=== PATIENT | male | born 1960 | race African-American/Black ===

== ENCOUNTER 2020-02-10 10:34 | Inpatient (IN) | payer OTHER ==
--- NOTE | 2020-02-10 15:48 | BHS.RME ---
Substance Use & Tx History - Substance Use History Heroin Substance amount: 7 bags Frequency of use: Daily Substance route: Inhalation (ex: sniffing or snorting) Date of Last Use: 02/10/20 Cocaine-Crack Substance amount: 70$ Frequency of use: Daily Substance route: Smoking Date of Last Use: 02/09/20 - Last Treatment Date of last treatment: 2018 Where was last treatment: Detox Physical/Psych/Mental Status - Behavior Eye Contact: Normal - Cooperativeness Cooperativeness: Cooperative - Thinking Thought Processes: Logical Thought content: Future oriented - Physical Health Problems Is patient presently having any pain?: No Does patient presently have any injuries (include location): No Does patient currently have a fever: No COWS - Scale Resting Pulse: 0= [place] 80 or Below Sweatin= Chills/Flushing Restless Observation: 0= Sits Still Pupil Size: 1= Pupils >than Normal Bone or Joint Aches: 2= Severe Diffuse Aches Runny Nose/ Eye Tearin= Runny Nose/Eyes GI Upset > 30mins: 2= Nausea/Diarrhea Tremor Observation: 2= Slight Tremor Visible Yawning Observation: 2= >3x During Session Anxiety or Irritability: 2=Irritable/Anxious Goose Flesh Skin: 3=Piloerection COWS Score: 17
--- NOTE | 2020-02-10 16:11 | HP ---
COWS - Scale Resting Pulse: 0= [place] 80 or Below Sweatin= Chills/Flushing Restless Observation: 0= Sits Still Pupil Size: 1= Pupils >than Normal Bone or Joint Aches: 2= Severe Diffuse Aches Runny Nose/ Eye Tearin= Runny Nose/Eyes GI Upset > 30mins: 2= Nausea/Diarrhea Tremor Observation: 2= Slight Tremor Visible Yawning Observation: 2= >3x During Session Anxiety or Irritability: 2=Irritable/Anxious Goose Flesh Skin: 3=Piloerection COWS Score: 17 CIWA Score - Admission Criteria OASAS Guidelines: Admission for Medically Managed Detox: Requires at least one of the followin. CIWA greater than 12 2. Seizures within the past 24 hours 3. Delirium tremens within the past 24 hours 4. Hallucinations within the past 24 hours 5. Acute intervention needed for co occurring medical disorder 6. Acute intervention needed for co occurring psychiatric disorder 7. Severe withdrawal that cannot be handled at a lower level of care (continued vomiting, continued diarrhea, abnormal vital signs) requiring intravenous medication and/or fluids 8. Admitting History and Physical - Admission Chief Complaint: i need help to stop unsing heroin,crack History of Present Illness: this 59 years old male with heoin and cocaine dependence seeking detox,withdrawal symptom,first time to this facility History Source: Patient Limitations to Obtaining History: No Limitations - Past Medical History Cardiovascular: Yes: HTN Additional Past Medical History: skin graft of right leg at age of 37 - Smoking History Smoking history: Current every day smoker Have you smoked in the past 12 months: Yes Aproximately how many cigarettes per day: 10 - Alcohol/Substance Use Hx Alcohol Use: No History of Substance Use: reports: Cocaine, Heroin Date of Last Use: 02/09/20 - Social History Usual Living Arrangement: Yes: Other (homeless) Do you think of yourself as: Straight/Heterosexual ADL: Support Services Occupation: unemployed History of Recent Travel: Yes Other Social History: unemployed,denied legal issue Admission ROS [facility] Chief Complaint: i need help to stop using heroin and cocaine Allergies/Adverse Reactions: Allergies Allergy/AdvReac Type Severity Reaction Status Date / Time No Known Allergies Allergy Verified 02/10/20 16:57 History of Present Illness: this 59 years old male with heroin and crack dependence seeking detox,withdrawal symptom denied seizure denied syncope history of hypertension unemployed,no legal issue Exam Limitations: No Limitations - Ebola screening Have you traveled outside of the country in the last 21 days: No Have you had contact with anyone from an Ebola affected area: No Have you been sick,other than usual withdrawal symptoms: No Do you have a fever: No - Review of Systems Constitutional: Night Sweats, Changes in sleep EENT: reports: Tearing, Nose Congestion Respiratory: reports: No Symptoms reported Cardiac: reports: No Symptoms Reported GI: reports: Nausea, Abdominal cramping : reports: No Symptoms Reported Musculoskeletal: reports: Back Pain, Muscle Pain, Neck Pain Integumentary: reports: Dryness Neuro: reports: Headache, Tremors Endocrine: reports: No Symptoms Reported Hematology: reports: No Symptoms Reported Psychiatric: reports: No Sypmtoms Reported, Judgement Intact, Mood/Affect Appropiate, Orientated x3 Patient History - Patient Medical History Hx Anemia: No Hx Asthma: No Hx Chronic Obstructive Pulmonary Disease (COPD): No Hx Cancer: No Hx Cardiac Disorders: No Hx Congestive Heart Failure: No Hx Hypertension: Yes (non compliance) Hx Hypercholesterolemia: No Hx Pacemaker: No HX Cerebrovascular Accident: No Hx Seizures: No Hx Dementia: No Hx Diabetes: No Hx Gastrointestinal Disorders: No Hx Liver Disease: No Hx Genitourinary Disorders: No Hx Sexually Transmitted Disorders: No Hx Renal Disease (ESRD): No Hx Thyroid Disease: No Hx Human Immunodeficiency Virus (HIV): No (2019 negative) Hx Hepatitis C: No Hx Depression: No Hx Suicide Attempt: No Hx Bipolar Disorder: No Hx Schizophrenia: No Other Medical History: no suicidal,no homicidal - Patient Surgical History Other Surgical History: skin graft right leg at age 37 - PPD History Previous Implant?: Yes Documented Results: Negative w/o proof Implanted On Prior [facility] Admission?: No PPD to be Administered?: Yes - Smoking Cessation Smoking history: Current every day smoker Have you smoked in the past 12 months: Yes Aproximately how many cigarettes per day: 10 Hx Chewing Tobacco Use: No Initiated information on smoking cessation: Yes 'Breaking Loose' booklet given: 02/10/20 - Substance & Tx. History Hx Alcohol Use: No Hx Substance Use: Yes Substance Use Type: Cocaine, Heroin Hx Substance Use Treatment: Yes ([facility] in 2019) - Substances abused Heroin Substance route: Inhalation Frequency: Daily Amount used: 7 bags Age of first use: 34 Date of last use: 02/09/20 Crack Substance route: Smoking Frequency: Daily Amount used: 70$ Age of first use: 34 Date of last use: 02/09/20 Admission Physical Exam [facility] - Vital Signs Vital Signs: bp 185/108,p70,r20,t96.8,ann-marie 0.00,pulse ox 99 - Physical General Appearance: Yes: Moderate Distress, Tremorous, Irritable, Sweating, Anxious HEENTM: Yes: Normal ENT Inspection, CARM[place], Pharynx Normal Respiratory: Yes: Lungs Clear, Normal Breath Sounds, No Respiratory Distress Neck: Yes: Within Normal Limits, Supple, Trachea in good position Breast: Yes: Within Normal Limits Cardiology: Yes: Within Normal Limits, Regular Rhythm, Regular Rate, S1, S2 Abdominal: Yes: Within Normal Limits, Normal Bowel Sounds, Non Tender, Soft Genitourinary: Yes: Within Normal Limits Back: Yes: Muscle Spasm Musculoskeletal: Yes: full range of Motion, Back pain, Muscle Pain Extremities: Yes: Other (skin graft tight lower leg) Neurological: Yes: engineer intern II-XII NML intact, Fully Oriented, Alert, Motor Strength 5/5 Integumentary: Yes: Dry Lymphatic: Yes: Within Normal Limits - Diagnostic (1) Opioid dependence with withdrawal Current Visit: Yes Status: Acute (2) Cocaine dependence Current Visit: Yes Status: Acute (3) Nicotine dependence Current Visit: Yes Status: Acute (4) Essential hypertension Current Visit: Yes Status: Acute Cleared for Admission [facility] - Detox or Rehab [facility] Level of Care: Medically Managed Detox Regimen/Protocol: Methadone Inpatient Rehab Admission - Rehab Decision to Admit Inpatient rehab admission?: No
[2020-02-10] MEDS ORDERED: ACETAMINOPHEN 325 MG TABLET (FP) PO PRN ×2 (16:25)
[2020-02-10] MEDS ORDERED: METHADONE HCL 10 MG TABLET (FOR DETOX USE ONLY) PO ONE (16:25)
[2020-02-10] MEDS ORDERED: MENTHOL/PHENOL 1 EACH UD MM PRN (16:25)
[2020-02-10] MEDS ORDERED: MAGNESIUM CITRATE 300 ML BOTTLE PO PRN (16:25)
[2020-02-10] MEDS ORDERED: BISMUTH SUBSALICYLATE 524 MG/30 ML UD PO PRN (16:25)
[2020-02-10] MEDS ORDERED: NICOTINE POLACRILEX 2 MG GUM BUC PRN (16:25)
[2020-02-10] MEDS ORDERED: METHOCARBAMOL 500 MG TABLET PO PRN (16:25)
[2020-02-10] MEDS ORDERED: MAGNESIUM HYDROX 2400MG/30ML ORAL SUSPENSION 30 ML CUP PO PRN (16:25)
[2020-02-10] MEDS ORDERED: MAG HYDROX/AL HYDROX/SIMETH 30 ML UNIT-DOSE CUP PO PRN (16:25)
[2020-02-10] MEDS ORDERED: NALOXONE HCL 0.4 MG/ML VIAL IM PRN (16:25)
[2020-02-10] MEDS ORDERED: IBUPROFEN 400 MG TABLET (FP) PO PRN (16:25)
[2020-02-10] MEDS ORDERED: ONDANSETRON *ODT* 4 MG TABLET SL PRN (16:25)
[2020-02-10 16:36] VITALS: BMI 26.3
[2020-02-10] MEDS: hydrOXYzine PAMOATE 25 MG CAPSULE (FP) PO SCH ×2 (18:20→23:06)
[2020-02-10] MEDS: cloNIDine HCL 0.1 MG TABLET PO PRN (18:20)
[2020-02-10] MEDS: THIAMINE HCL 100 MG TABLET (FP) PO SCH (23:06)
[2020-02-10] MEDS: MELATONIN 5 MG TABLETS PO SCH (23:06)
[2020-02-11] MEDS: cloNIDine HCL 0.1 MG TABLET PO PRN ×2 (07:32→22:36)
[2020-02-11] MEDS: hydrOXYzine PAMOATE 25 MG CAPSULE (FP) PO SCH ×5 (07:32→22:37)
[2020-02-11 09:05] LABS: HEMATOCRIT 47.5 % (35.4-49); HEMOGLOBIN 15.6 GM/dL (11.7-16.9); MCH 30.2 pg (25.7-33.7); MCHC 32.8 g/dl (32.0-35.9); MEAN CELL VOLUME 92.1 fl (80-96); MEAN PLT VOLUME 8.5 fl (7.5-11.1); PLATELET COUNT 286 K/MM3 (134-434); RBC 5.16 M/mm3 (4.00-5.60); RDW 14.4 % (11.9-15.9); WHITE BLOOD COUNT 3.6 K/mm3 (4.0-10.0)
[2020-02-11] MEDS ORDERED: METHADONE HCL 10 MG TABLET (FOR DETOX USE ONLY) ONE (09:21)
[2020-02-11] MEDS ORDERED: METHADONE HCL 5 MG TABLET (FOR DETOX USE ONLY) ONE (09:21)
[2020-02-11 09:35] LABS: ALBUMIN 3.4 g/dl (3.4-5.0); BILIRUBIN,TOTAL 0.8 mg/dL (0.2-1); BLOOD UREA NITROGEN 15.7 mg/dL (7-18); CALCIUM 9.1 mg/dL (8.5-10.1); CREATININE 1.3 mg/dL (0.55-1.3); POTASSIUM 3.8 mmol/L (3.5-5.1); TOT PROT 7.8 g/dl (6.4-8.2)
[2020-02-11] MEDS ORDERED: METHADONE (DETOX) 20 MG, METHADONE (DETOX) 5 MG PO ONE (10:00)
[2020-02-11] MEDS: PRENATAL VITAMINS W/ FOLIC ACID TABLET (FP) PO SCH (10:54)
[2020-02-11] MEDS: LISINOPRIL 20 MG TABLET (FP) PO SCH (10:54)
[2020-02-11] MEDS: NICOTINE 21 MG/24 HOURS TOPICAL PATCH TD SCH (10:55)
--- NOTE | 2020-02-11 18:14 | PN ---
BHS COWS - Scale Resting Pulse: 1= [place] 81-100 Sweatin= Chills/Flushing Restless Observation: 0= Sits Still Pupil Size: 0= Normal to Room Light Bone or Joint Aches: 2= Severe Diffuse Aches Runny Nose/ Eye Tearin= Runny Nose/Eyes GI Upset > 30mins: 2= Nausea/Diarrhea Tremor Observation of Outstretched Hands: 2= Slight Tremor Visible Yawning Observation: 0= None Anxiety or Irritability: 2=Irritable/Anxious Goose Flesh Skin: 0=Smooth Skin COWS Score: 12 BHS Progress Note (SOAP) Subjective: Patient asleep Objective: 02/11/20 18:12 Last Vital Signs Temp Pulse Resp BP Pulse Ox 98.1 F 96 H 18 129/76 100 02/11/20 13:15 02/11/20 13:15 02/11/20 13:15 02/11/20 13:15 02/11/20 13:15 Laboratory Tests 02/11/20 02/11/20 02/11/20 07:30 07:30 07:30 WBC 3.6 L RBC 5.16 Hgb 15.6 Hct 47.5 MCV 92.1 MCH 30.2 MCHC 32.8 RDW 14.4 Plt Count 286 MPV 8.5 Sodium 139 Potassium 3.8 Chloride 101 Carbon Dioxide 34 H Anion Gap 4 L BUN 15.7 Creatinine 1.3 Est GFR (CKD-EPI)AfAm 69.71 Est GFR (CKD-EPI)NonAf 60.14 Random Glucose 139 H Calcium 9.1 Total Bilirubin 0.8 AST 29 ALT 41 Alkaline Phosphatase 99 Total Protein 7.8 Albumin 3.4 Syphilis Serology Non-reactive Labs reviewed: serum glucose 139 (high) Assessment: 02/11/20 18:13 Withdrawal sxs Hyperglycemia noted Plan: Continue detox Encourage PO water intake Hyperglycemia: repeat fasting glucose, send A1c
[2020-02-11] MEDS: THIAMINE HCL 100 MG TABLET (FP) PO SCH (22:36)
[2020-02-11] MEDS: MELATONIN 5 MG TABLETS PO SCH (22:37)
[2020-02-12] MEDS: hydrOXYzine PAMOATE 25 MG CAPSULE (FP) PO SCH ×2 (07:09→10:28)
[2020-02-12] MEDS: cloNIDine HCL 0.1 MG TABLET PO PRN (07:09)
[2020-02-12] MEDS ORDERED: METHADONE HCL 10 MG TABLET (FOR DETOX USE ONLY) PO ONE (10:00)
[2020-02-12] MEDS: NICOTINE 21 MG/24 HOURS TOPICAL PATCH TD SCH (10:23)
[2020-02-12] MEDS: LISINOPRIL 20 MG TABLET (FP) PO SCH (10:27)
[2020-02-12] MEDS: PRENATAL VITAMINS W/ FOLIC ACID TABLET (FP) PO SCH (10:27)
--- NOTE | 2020-02-12 10:34 | PN ---
BHS COWS - Scale Resting Pulse: 0= [place] 80 or Below Sweatin= Chills/Flushing Restless Observation: 1= Difficult to Sit Still Pupil Size: 0= Normal to Room Light Bone or Joint Aches: 2= Severe Diffuse Aches Runny Nose/ Eye Tearin= Runny Nose/Eyes GI Upset > 30mins: 0= None Tremor Observation of Outstretched Hands: 1= Tremor [place], Not Seen Yawning Observation: 2= >3x During Session Anxiety or Irritability: 2=Irritable/Anxious Goose Flesh Skin: 0=Smooth Skin COWS Score: 11 S Progress Note (SOAP) Subjective: shakes sweats body aches tired interrupted sleep Objective: 02/12/20 10:33 Vital Signs Temperature 99.8 F H 02/12/20 05:26 Pulse Rate 70 02/12/20 05:26 Respiratory Rate 20 02/12/20 05:26 Blood Pressure 136/87 02/12/20 05:26 O2 Sat by Pulse Oximetry (%) 100 02/11/20 20:50 Laboratory Tests 02/10/20 02/11/20 02/11/20 22:00 07:30 07:30 WBC 3.6 L RBC 5.16 Hgb 15.6 Hct 47.5 MCV 92.1 MCH 30.2 MCHC 32.8 RDW 14.4 Plt Count 286 MPV 8.5 Sodium Potassium Chloride Carbon Dioxide Anion Gap BUN Creatinine Est GFR (CKD-EPI)AfAm Est GFR (CKD-EPI)NonAf Random Glucose Calcium Total Bilirubin AST ALT Alkaline Phosphatase Total Protein Albumin Syphilis Serology Non-reactive COVID-19 (ROSALINDA) Not detected 02/11/20 07:30 WBC RBC Hgb Hct MCV MCH MCHC RDW Plt Count MPV Sodium 139 Potassium 3.8 Chloride 101 Carbon Dioxide 34 H Anion Gap 4 L BUN 15.7 Creatinine 1.3 Est GFR (CKD-EPI)AfAm 69.71 Est GFR (CKD-EPI)NonAf 60.14 Random Glucose 139 H Calcium 9.1 Total Bilirubin 0.8 AST 29 ALT 41 Alkaline Phosphatase 99 Total Protein 7.8 Albumin 3.4 Syphilis Serology COVID-19 (ROSALINDA) labs noted pt states he refused re-drawn labs because hes not a diabetic encouraged water intake as needed. pt in agreement aaox3 lying in bed no acute distress Assessment: 02/12/20 10:35 withdrawals Plan: continue detox increase fluids
[2020-02-12] MEDS ORDERED: hydrOXYzine PAMOATE 25 MG CAPSULE (FP) PO PRN (11:05)
--- NOTE | 2020-02-12 11:44 | EKG ---
Test Reason : Blood Pressure : / mmHG Vent. Rate : 061 BPM Atrial Rate : 061 BPM P-R Int : 156 ms QRS Dur : 098 ms QT Int : 422 ms P-R-T Axes : 037 071 069 degrees QTc Int : 424 ms NORMAL SINUS RHYTHM MINIMAL VOLTAGE CRITERIA FOR LVH, MAY BE NORMAL VARIANT BORDERLINE ECG NO PREVIOUS ECGS AVAILABLE Confirmed by AMOR SHELTON MD ([id number]) on 02/12/2020 11:43:40 AM Referred By: Confirmed By:AMOR SHELTON MD
[2020-02-12] MEDS: THIAMINE HCL 100 MG TABLET (FP) PO SCH (22:39)
[2020-02-12] MEDS: MELATONIN 5 MG TABLETS PO SCH (22:39)
[2020-02-13] MEDS ORDERED: METHADONE HCL 5 MG TABLET (FOR DETOX USE ONLY) ONE (09:37)
[2020-02-13] MEDS ORDERED: METHADONE HCL 10 MG TABLET (FOR DETOX USE ONLY) ONE (09:37)
[2020-02-13] MEDS ORDERED: METHADONE (DETOX) 10 MG, METHADONE (DETOX) 5 MG PO ONE (10:00)
--- NOTE | 2020-02-13 10:07 | PN ---
BHS COWS - Scale Resting Pulse: 0= [place] 80 or Below Sweatin= Chills/Flushing Restless Observation: 1= Difficult to Sit Still Pupil Size: 0= Normal to Room Light Bone or Joint Aches: 1= Mild Discomfort Runny Nose/ Eye Tearin= None GI Upset > 30mins: 0= None Tremor Observation of Outstretched Hands: 1= Tremor [place], Not Seen Yawning Observation: 1= 1-2x During Session Anxiety or Irritability: 1=Feels Anxious/Irritable Goose Flesh Skin: 0=Smooth Skin COWS Score: 6 BHS Progress Note (SOAP) Subjective: sweats restless interrupted sleep Objective: 02/13/20 10:06 Vital Signs Temperature 97.6 F 02/13/20 08:49 Pulse Rate 73 02/13/20 08:49 Respiratory Rate 18 02/13/20 08:49 Blood Pressure 126/75 02/13/20 08:49 O2 Sat by Pulse Oximetry (%) 99 02/13/20 08:49 Laboratory Tests 02/10/20 02/11/20 02/11/20 22:00 07:30 07:30 WBC 3.6 L RBC 5.16 Hgb 15.6 Hct 47.5 MCV 92.1 MCH 30.2 MCHC 32.8 RDW 14.4 Plt Count 286 MPV 8.5 Sodium Potassium Chloride Carbon Dioxide Anion Gap BUN Creatinine Est GFR (CKD-EPI)AfAm Est GFR (CKD-EPI)NonAf Random Glucose Calcium Total Bilirubin AST ALT Alkaline Phosphatase Total Protein Albumin Syphilis Serology Non-reactive COVID-19 (ROSALINDA) Not detected 02/11/20 07:30 WBC RBC Hgb Hct MCV MCH MCHC RDW Plt Count MPV Sodium 139 Potassium 3.8 Chloride 101 Carbon Dioxide 34 H Anion Gap 4 L BUN 15.7 Creatinine 1.3 Est GFR (CKD-EPI)AfAm 69.71 Est GFR (CKD-EPI)NonAf 60.14 Random Glucose 139 H Calcium 9.1 Total Bilirubin 0.8 AST 29 ALT 41 Alkaline Phosphatase 99 Total Protein 7.8 Albumin 3.4 Syphilis Serology COVID-19 (ROSALINDA) aaox3 lying in bed no acute distress Assessment: 02/13/20 10:06 withdrawals Plan: continue detox
[2020-02-13] MEDS: NICOTINE 21 MG/24 HOURS TOPICAL PATCH TD SCH (10:10)
[2020-02-13] MEDS: PRENATAL VITAMINS W/ FOLIC ACID TABLET (FP) PO SCH (10:11)
[2020-02-13] MEDS: LISINOPRIL 20 MG TABLET (FP) PO SCH (10:11)
[2020-02-13] MEDS: MELATONIN 5 MG TABLETS PO SCH (22:47)
[2020-02-13] MEDS: THIAMINE HCL 100 MG TABLET (FP) PO SCH (22:48)
[2020-02-14] MEDS ORDERED: METHADONE HCL 10 MG TABLET (FOR DETOX USE ONLY) PO ONE (10:00)
[2020-02-14] MEDS: LISINOPRIL 20 MG TABLET (FP) PO SCH (10:06)
[2020-02-14] MEDS: PRENATAL VITAMINS W/ FOLIC ACID TABLET (FP) PO SCH (10:06)
[2020-02-14] MEDS: NICOTINE 21 MG/24 HOURS TOPICAL PATCH TD SCH (10:06)
--- NOTE | 2020-02-14 12:08 | PN ---
BHS COWS - Scale Resting Pulse: 0= [place] 80 or Below Sweatin= Chills/Flushing Restless Observation: 1= Difficult to Sit Still Pupil Size: 0= Normal to Room Light Bone or Joint Aches: 0= None Runny Nose/ Eye Tearin= None GI Upset > 30mins: 0= None Tremor Observation of Outstretched Hands: 0= None Yawning Observation: 1= 1-2x During Session Anxiety or Irritability: 1=Feels Anxious/Irritable Goose Flesh Skin: 0=Smooth Skin COWS Score: 4 BHS Progress Note (SOAP) Subjective: feeling better tired Objective: 02/14/20 12:06 Vital Signs Temperature 98.4 F 02/14/20 09:24 Pulse Rate 87 02/14/20 09:24 Respiratory Rate 20 02/14/20 09:24 Blood Pressure 139/73 02/14/20 09:24 O2 Sat by Pulse Oximetry (%) 98 02/14/20 09:24 aaox3 ambulating no acute distress Assessment: 02/14/20 12:07 mild withdrawals Plan: continue detox d/c in am
[2020-02-14] MEDS: THIAMINE HCL 100 MG TABLET (FP) PO SCH (22:49)
[2020-02-14] MEDS: MELATONIN 5 MG TABLETS PO SCH (22:50)
[2020-02-15] MEDS ORDERED: METHADONE HCL 5 MG TABLET (FOR DETOX USE ONLY) PO ONE (06:00)
[2020-02-15 06:20] VITALS: BP 140/60; PULSE 68; TEMP 98.6
--- NOTE | 2020-02-15 09:31 | DS ---
[facility] Detox Discharge Summary Admission Date: 02/10/20 - History Present History: Cocaine Dependence, Opioid Dependence - Physical Exam Results Vital Signs: Vital Signs Temperature 98.6 F 02/15/20 05:36 Pulse Rate 68 02/15/20 05:36 Respiratory Rate 02/15/20 05:36 Blood Pressure 140/60 02/15/20 05:36 O2 Sat by Pulse Oximetry (%) 97 02/15/20 05:36 Pertinent Admission Physical Exam Findings: Vital Signs Temperature 98.6 F 02/15/20 05:36 Pulse Rate 68 02/15/20 05:36 Respiratory Rate 02/15/20 05:36 Blood Pressure 140/60 02/15/20 05:36 O2 Sat by Pulse Oximetry (%) 97 02/15/20 05:36 Laboratory Tests 02/10/20 02/11/20 02/11/20 22:00 07:30 07:30 WBC 3.6 L RBC 5.16 Hgb 15.6 Hct 47.5 MCV 92.1 MCH 30.2 MCHC 32.8 RDW 14.4 Plt Count 286 MPV 8.5 Sodium Potassium Chloride Carbon Dioxide Anion Gap BUN Creatinine Est GFR (CKD-EPI)AfAm Est GFR (CKD-EPI)NonAf Random Glucose Calcium Total Bilirubin AST ALT Alkaline Phosphatase Total Protein Albumin Syphilis Serology Non-reactive COVID-19 (ROSALINDA) Not detected 02/11/20 07:30 WBC RBC Hgb Hct MCV MCH MCHC RDW Plt Count MPV Sodium 139 Potassium 3.8 Chloride 101 Carbon Dioxide 34 H Anion Gap 4 L BUN 15.7 Creatinine 1.3 Est GFR (CKD-EPI)AfAm 69.71 Est GFR (CKD-EPI)NonAf 60.14 Random Glucose 139 H Calcium 9.1 Total Bilirubin 0.8 AST 29 ALT 41 Alkaline Phosphatase 99 Total Protein 7.8 Albumin 3.4 Syphilis Serology COVID-19 (ROSALINDA) aaox3 ambulating no acute distress - Treatment Hospital Course: Detox Protocol Followed, Detoxed Safely, Responded well, Discharged Condition Good, Rehab Referral Accepted - Medication Discharge Medications: Ambulatory Orders Lisinopril [Prinivil] 20 mg PO DAILY 02/10/20 - Diagnosis (1) Cocaine dependence Current Visit: Yes Status: Chronic Qualifiers: Substance use status: uncomplicated Qualified Code(s): F14.20 - Cocaine dependence, uncomplicated (2) Essential hypertension Current Visit: Yes Status: Acute (3) Nicotine dependence Current Visit: Yes Status: Chronic Qualifiers: Nicotine product type: cigarettes Substance use status: uncomplicated Qualified Code(s): F17.210 - Nicotine dependence, cigarettes, uncomplicated (4) Opioid dependence with withdrawal Current Visit: Yes Status: Chronic - AMA Did Patient Leave Against Medical Advice: No
[2020-02-15] MEDS: NICOTINE 21 MG/24 HOURS TOPICAL PATCH TD SCH (10:04)
[2020-02-15] MEDS: PRENATAL VITAMINS W/ FOLIC ACID TABLET (FP) PO SCH (10:04)
[2020-02-15] MEDS: LISINOPRIL 20 MG TABLET (FP) PO SCH (10:09)
== END 2020-02-15 11:19 | disposition home or self-care (01) | DRG 773 ==
LOC: YASAS 10:34 → Y6N 16:40
PROVIDERS: ADMIT Allergy & Immunology; ATTEND Allergy & Immunology
PROC: HZ2ZZZZ Detoxification Services for Substance Abuse Treatment (ICD-10-PCS; principal; 2020-02-10)
DX: F11.23 Opioid dependence with withdrawal (principal); F14.20 Cocaine dependence, uncomplicated; F17.210 Nicotine dependence, cigarettes, uncomplicated; I10 Essential (primary) hypertension; R73.9 Hyperglycemia, unspecified; Z94.5 Skin transplant status
CPT/HCPCS: 36415; 71046-TC-FY; 80053; 85027; 86780; 93005; 93010; J0735; U0003